=== PATIENT | male | born 1940 | race Hispanic/Latino ===

== ENCOUNTER 2023-09-10 17:40 | Emergency (ER) | payer MEDICARE ==
[~2023-09-10] VITALS: Ht 172.7 cm; Wt 95.3 kg
[2023-09-10 18:29] LABS: HEMATOCRIT 39.9 % (42-54); MEAN CORPUSCULAR HEMOGLOBIN 31.1 pg (27.0-33.0); MEAN CORPUSCULAR HGB CONC 34.1 g/dL (32.0-36.0); MEAN CORPUSCULAR VOLUME 91.1 fL (79-99); RED BLOOD CELL COUNT(AUTO) 4.38 MIL/uL (4.50-6.20); RED CELL DISTRIBUTION WIDTH 11.9 % (11.0-15.5); WHITE BLOOD COUNT (AUTO) 5.1 K/uL (4.8-10.8)
[2023-09-10 18:41] LABS: CREATININE 0.9 mg/dL (0.5-1.5); POTASSIUM 3.8 mmol/L (3.5-5.1)
[2023-09-10 19:23] VITALS: BP 143/83; PULSE 88; RESP 18; O2SAT 99
== END 2023-09-10 19:49 | disposition home or self-care (01) ==
LOC: EDH 17:40
DX: I10 Essential (primary) hypertension (principal)
CPT/HCPCS: 36415; 80048; 84484; 85027; 93005